=== PATIENT | male | born 1985 | race Caucasian/White ===

== ENCOUNTER 2016-05-28 01:18 | Emergency (ER) | payer SELFPAY ==
[~2016-05-28] VITALS: Wt 72.5 kg
--- NOTE | 2016-05-28 04:39 | ERD ---
ER Documentation Chief Complaint Date/Time DATE: 05/28/16 TIME: 04:34 Chief Complaint Bilateral eye redness and pain HPI 30-year-old male presents with chief complaint of constant bilateral eye pain and redness 2 days. 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 He denies any direct trauma to his eyes. Reports associated watery discharge. Denies use of contact lenses or glasses. Currently rates his pain a 6 out of 10 in severity. Has not taken any medications for relief of symptoms. ROS All systems reviewed and are negative except as per history of present illness. Medications Home Meds Active Scripts Ibuprofen* (Motrin*) 600 Mg Tab, 600 MG PO Q6, #30 TAB Prov:Tram Mendenhall PA-C 05/28/16 Hydrocodone/Acetaminophen ([place] 5-325 Tablet) 1 Each Tablet, 1 TAB PO Q6H Y for PAIN, #15 TAB Prov:Tram Mendenhall PA-C 05/28/16 Erythromycin* (Erythromycin* Ophthalmic) 1 Applic Oint, 1 APPLIC BOTH EYES QID for 5 Days, #1 TUB Prov:Tram Mendenhall PA-C 05/28/16 Allergies Allergies: Coded Allergies: No Known Allergy (Unverified , 05/28/16) PMhx/Soc Medical and Surgical Hx: pt denies Medical Hx, pt denies Surgical Hx Hx Alcohol Use: Yes (occassional) Hx Substance Use: No Hx Tobacco Use: No Smoking Status: Current every day smoker Physical Exam Vitals Vital Signs Date Time Temp Pulse Resp B/P Pulse Ox O2 Delivery O2 Flow Rate FiO2 05/28/16 01:33 97.8 72 20 130/83 98 Physical Exam GENERAL: Non-toxic. No apparent signs of distress. HEENT: Atraumatic. Bilateral eyes are PERRL EOM intact. Bilateral injection, scleral erythema, and watery discharge. No eyelid or lower eyelid swelling noted. Ears: Normal tympanic membrane, no erythema or bulging. No ear canal swelling. No ear discharge. Nose: no nasal discharge. Throat: Oropharynx normal. Tongue pink and moist. No tonsillar swelling or tonsillar exudates. No lymphadenopathy. LUNGS: Clear to auscultation. No accessory muscle use. No wheezing, no crackles. No signs or symptoms of respiratory distress. HEART: Regular rate and rhythm. No murmurs, clicks, rubs or gallops. NEURO: Cranial nerves are grossly intact. Normal mental status for age. Good muscle tone. SKIN: There is no apparent rash, petechiae, erythema or swelling. Good skin turgor. 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 On exam he has bilateral scleral erythema with watery clear discharge. He denies use of contact lenses and glasses. Symptoms are likely due to UV keratitis based on history and physical exam findings. However I ordered fluorescein stain strips and tetracaine to do a [place]inos lamp exam to rule out ulceration, abrasion, or foreign body. Valdovinos lamp exam: No fluorescein uptake, no signs of corneal abrasion or ulcer, no foreign body visualized At this time the suspicion for foreign body in eye, corneal ulceration, corneal abrasion, acute angle-closure glaucoma, retinal detachment, and post or preseptal cellulitis. I have given the patient a prescription for erythromycin ointment apply to both eyes patient is advised to avoid driving while vision is impaired, also given a prescription for [place] and ibuprofen 600 mg for pain relief. Stable for discharge and outpatient management. Advised to follow-up with PCP in 1-2 days. Departure Diagnosis: Primary Impression: Pain in eye Laterality: bilateral Qualified Code: H57.13 - Pain in eye, bilateral Additional Impression: UV keratitis Laterality: bilateral Qualified Code: H16.133 - UV keratitis, bilateral Condition: Good Tram Mendenhall PA-C May 28, 2016 04:39
[2016-05-28] MEDS ORDERED: IBUP-1542 PO (04:52)
[2016-05-28] MEDS ORDERED: HYDR-906 PO (04:52)
[2016-05-28] MEDS ORDERED: ERYTOPOI BOTH EYES (04:52)
[2016-05-28] MEDS ORDERED: FLUORESCEIN STRIP BOTH EYES ONE (05:00)
[2016-05-28] MEDS ORDERED: TETRACAINE 0.5% 4 ML OPH BOTH EYES ONE (05:00)
== END 2016-05-28 05:03 | disposition home or self-care (01) ==
LOC: FTE 01:18
DX: H57.13 Ocular pain, bilateral (principal); H16.133 Photokeratitis, bilateral; F17.210 Nicotine dependence, cigarettes, uncomplicated
CPT/HCPCS: 99284